=== PATIENT | female | born 1960 | race Caucasian/White ===

== ENCOUNTER 2023-10-29 11:00 | Outpatient (OUT) | payer OTHER, SELFPAY ==
[2023-10-29 11:20] LABS: Bilirubin Urine SMALL (NEGATIVE); Blood Urine NEGATIVE (NEGATIVE); Clarity Urine CLEAR (CLEAR); Color Urine DK. YELLOW (YELLOW); Glucose Urine UA NEGATIVE (NEGATIVE); Ketones Urine TRACE mg/dL (NEGATIVE); Leukocyte Esterase Urine TRACE (NEGATIVE); Nitrite Urine NEGATIVE (NEGATIVE); Protein Urine TRACE mg/dL (NEG/TRACE); Specific Gravity Urine >=1.030 (1.005-1.025); pH Urine 5.5 (5.0-9.0)
[2023-10-29 11:24] LABS: Basophils Percent Auto 0.5 % (0.2-2.0); Eosinophils Absolute Auto 0.2 10^3/uL (0.0-0.7); Eosinophils Percent Auto 1.9 % (0.9-7.0); Hematocrit 42.7 % (36.0-48.0); Hemoglobin 13.8 g/dL (12.0-16.0); Immature Granulocytes Abs Auto 0.02 10^3/uL (0.00-0.03); Immature Granulocytes Pct Auto 0.3 % (0.0-0.5); Lymphocytes Absolute Auto 1.7 10^3/uL (1.2-3.8); Mean Corpuscular HGB Conc 32.3 g/dL (29.9-35.2); Mean Corpuscular Hemoglobin 29.7 pg (26.7-34.0); Mean Platelet Volume 9.3 fL (9.5-13.5); Monocytes Absolute Auto 0.6 10^3/uL (0.3-0.8); Neutrophils Absolute Auto 5.3 10^3/uL (1.4-6.5); Neutrophils Percent Auto 67.3 % (43.0-75.0); Platelet Count 293 10^3/uL (150-450); Red Blood Count 4.64 10^6/uL (4.20-5.40); Red Cell Distribution Width 12.1 % (11.0-15.0); White Blood Count 7.9 10^3/uL (4.0-11.0)
[2023-10-29 11:50] LABS: Bacteria Urine TRACE #/HPF (NONE SEEN); Crystals Seen? None Seen #/HPF (None Seen); Mucus Urine NONE SEEN (NONE SEEN); RBC Urine 0-2 #/HPF (0-2); Squamous Epithelial Cell Urine MODERATE #/LPF (NONE/RARE)
[2023-10-29 11:51] LABS: Cast Seen? NONE SEEN #/LPF (NONE SEEN)
[2023-10-29 12:50] LABS: Free T4 0.99 ng/dL (0.76-1.46)
[2023-10-29 12:56] LABS: Alanine Aminotransferase 34 U/L (14-59); Alkaline Phosphatase 117 U/L (46-116); Anion Gap 12.1; Aspartate Amino Transferase 18 U/L (15-37); BUN Creatinine Ratio 19.6; Bilirubin Total 0.8 mg/dL (0.2-1.0); Calcium 9.3 mg/dL (8.5-10.1); Carbon Dioxide 27.1 mmol/L (21.0-32.0); Chloride 103 mmol/L (98-107); Chol HDL Ratio 4.2; Cholesterol 224 mg/dL (<=200); Estimated GFR (African America >60 (>=60); Estimated GFR (Non-African Ame 51 (>=60); Free T3 2.68 pg/mL (2.18-3.98); Globulin 3.9 g/dL; Glucose 116 mg/dL (74-106); HDL Cholesterol 53 mg/dL (40-60); Potassium 4.2 mmol/L (3.5-5.1); Sodium 138 mmol/L (136-145); Thyroid Stimulating Hormone 2.274 uIU/mL (0.358-3.740); Total Protein 7.9 g/dL (6.4-8.2); Triglycerides 153 mg/dL (<=150); VLDL CHOLESTEROL 30.6 mg/dL
[2023-10-30 16:09] LABS: Thyroglobulin Antibody <1.0 IU/mL (0.0-0.9); Thyroid Peroxidase (TPO) Ab <9 IU/mL (0-34)
== END 2023-10-29 11:01 | disposition home or self-care (01) ==
LOC: LAB 11:00
PROVIDERS: PCP Family Medicine; Visit Provider Family Medicine
DX: E01.0 Iodine-deficiency related diffuse (endemic) goiter (principal); E78.5 Hyperlipidemia, unspecified; Z79.899 Other long term (current) drug therapy; R35.1 Nocturia
CPT/HCPCS: 36415; 80053; 80061; 81001; 84439; 84443; 84481; 85025; 86376; 86800; 87086

== ENCOUNTER 2023-11-06 13:54 | Outpatient (OUT) | payer OTHER, SELFPAY ==
--- NOTE | 2023-11-06 13:59 | US_ITS ---
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 FINDINGS: The right thyroid lobe is heterogeneous and enlarged measuring 5.4 x 3.1 x 2.7 cm. 2 focal nodules. The thyroid isthmus is thickened measuring 8.7 mm. Heterogeneous. No focal nodule The left thyroid lobe is heterogeneous and enlarged measuring 6.4 x 3.6 x 2.8 cm. Single focal nodule The 2 most suspicious nodules: Nodule 1: Right mid lobe. 2.8 x 2.6 x 3.0 cm. Solid, hypoechoic, tall, smooth margins, punctate calcifications. TR 5 Nodule 2: Left thyroid lobe. 4.5 x 3.6 x 3.6 cm. Solid, hypoechoic, wide, smooth margins, punctate calcifications. TR 5 US/US thyroid IMPRESSION: Bilateral suspicious thyroid nodules with increase in size of the left thyroid nodule. Fine-needle aspiration is recommended if not already performed TI-RADS: The [employer] TI-RADS committee's white paper recommendations for thyroid lesions classified as TR5 (highly suspicious) are listed below: > 0.5 cm. Annual ultrasound follow-up for up to 5 years. > 1.0 cm. FNA. J. Am Ayala Radiol 2017;14:587-595. Electronically authenticated by: ROSEY MALODNADO Date: 11/06/2023 14:43
== END 2023-11-06 13:55 | disposition home or self-care (01) ==
LOC: US 13:54
PROVIDERS: PCP Family Medicine; Visit Provider Family Medicine
DX: E01.0 Iodine-deficiency related diffuse (endemic) goiter (principal)
CPT/HCPCS: 76536

== ENCOUNTER 2024-01-02 11:34 | Outpatient (OUT) | payer OTHER, SELFPAY ==
--- OUTSIDE RECORDS SUMMARY | 2024-01-02 11:40 | XMS_ITS | CCD ---
Author Name Unknown Address [address] [place] [address] Organization [facility] Care Team Providers Care Sustainability Engineer Name Role Phone Rosey Chao Unavailable DO Rosey Chao Primary Care Provider [phone] [facility], [facility] Attending Provider DR ROSEY CHAO Admitting Unavailable ZHANNA, DR CURRIE Attending Unavailable ZHANNA, DR CURRIE Primary Care Unavailable ZHANNA, DR CURRIE Consulting Unavailable [place], DR Currie Consulting Unavailable DO Rosey Chao Primary Care Provider DO Len Sosa Attending Provider LEN SOSA Attending Unavailable ROSEY CHAO Referring Unavailable Rosey Chao Primary Care Unavailable Len Sosa Attending Unavailable Len Sosa Admitting Unavailable Allergies Allergy Classification Reported Allergen(s) Allergy Type Date of Onset Reaction(s) Facility (2 sources) Oxytetracycline; Translations: [oxytetracycline] Drug Allergy 12-04-2023 [facility] Medications Current Medications Medication Drug Class(es) Dates Sig (Normalized) Sig (Original) amLODIPine 5 mg oral tablet (1 source) Dihydropyridine Calcium Channel Jean Marie Start: 12-06-2023 take 1 tablet by mouth every twenty-four hours amLODIPine Besylate 5 MG 1 tablet Orally Once a day for 90 days Nov, Active cholecalciferol 0.025 mg oral tablet (1 source) Vitamin D Start: 12-04-2023 take 1 tablet by mouth once daily Cholecalciferol (Vitamin D3) (Vitamin D3) 25 mcg (1,000 unit) Tablet Active 25 MCG PO Daily December 04, 2023 12:00am ciprofloxacin 2 mg/ml / hydrocortisone 10 mg/ml otic suspension (6 sources) Corticosteroid, Quinolone Antimicrobial Start: 05-25-2022 Cipro HC 0.2-1 % 3 drops into affected ear Otic Twice a day for 10 days 1 bottle May, Active clotrimazole 10 mg/ml topical solution (6 sources) Azole Antifungal Start: 05-25-2022 Clotrimazole 1 % 3 drops left ear Externally three times a day for 14 days May, Active Start: 05-25-2022 Clotrimazole 1 % 3 drops left ear Externally three times a day for 14 days May, Active fluticasone propionate 0.05 mg/actuat metered dose nasal spray (4 sources) Corticosteroid Start: 10-29-2023 take 2 spray(s) nasal route once daily Fluticasone Propionate 50 MCG/ACT 2 sprays each nostril Nasally Once a day Oct, Active PARoxetine hydrochloride 20 mg oral tablet (11 sources) Serotonin Reuptake Inhibitor Start: 12-04-2023 Paroxetine Hcl (Paxil) 20 mg Tablet Active 25 MG PO Every morning December 04, 2023 12:00am take 1 tablet by chino th once daily in the morning PARoxetine HCl ER 25 MG TAKE 1 TABLET BY MOUTH EVERY DAY IN THE MORNING Active Vitamin D3 (10 sources) Vitamin D3 Activ e Completed/Discontinued Medications Medication Drug Class(es) Dates Sig (Normalized) Sig (Original) augmented betamethasone 0.5 mg/ml topical cream (10 sources) Corticosteroid Start: 05-25-2022 Betamethasone Dipropionate Aug 0.05 % 1 application Externally Once a day x14 days for 14 days May, Not-Taking/PRN Start: 05-25-2022 Betamethasone Dipropionate Aug 0.05 % 1 application Externally Once a day x14 days for 14 days May, Active Problems Active Problems Problem Classification Problem Date Documented Date Episodic/Chronic Allergic reactions (3 sources) Dermatitis, unspecified Onset: 05-25-2022 Resolved: 05-25-2022 Episodic Anxiety disorders (12 sources) Mixed anxiety and depressive disorder; Translations: [Other specified anxiety disorders] Chronic Diabetes mellitus without complication (2 sources) Hyperglycemia, unspecified Episodic Disorders of lipid metabolism (12 sources) Hyperlipidemia; Translations: [Hyperlipidemia, unspecified] Chronic Esophageal disorders (10 sources) Acid reflux; Translations: [Gastro-esophageal reflux disease without esophagitis] Chronic Genitourinary symptoms and ill-defined conditions (1 source) Nocturia Episodic Other aftercare (2 sources) Other assisted (current) drug therapy Episodic Other circulatory disease (2 sources) Elevated blood-pressure reading, without diagnosis of hypertension Episodic Other nutritional; endocrine; and metabolic disorders (1 source) Abnormal weight loss Episodic Other screening for suspected conditions (not mental disorders or infectious disease) (4 sources) Abnormal findings on diagnostic imaging of other specified body structures; Translations: [Abnormal thyroid ultrasound] Chronic Otitis media and related conditions (1 source) Other specified disorders of Eustachian tube, unspecified ear Episodic Thyroid disorders (20 sources) Thyroid nodule; Translations: [Nontoxic single thyroid nodule] Onset: 05-25-2022 Resolved: 06-09-2022 Chronic Unclassified (1 source) Encounter for preprocedural laboratory examination; Translations: [Encounter for preprocedural laboratory examination] Onset: 12-04-2023 Past or Other Problems Problem Classification Problem Date Documented Da te Episodic/Chronic Other ear and sense organ disorders (1 source) Acute eczematoid otitis externa, left ear Onset: 05-25-2022 Resolved: 05-25-2022 Episodic Results Test Name Value Interpretation Reference Range Facility Basic Metabolic Panelon 11-19 Anion gap [Moles/Vol] 8.8 mmol/L Normal 6.0-15.0 [facility] Comment on above: Performed By: #### B MP, CBC #### [place] [address] [place] Calcium [Mass/Vol] 9.9 mg/dL Normal 8.6-10.3 [facility] Comment on above: Result Comment: PERF ORMED BY: [place] [address] PATHOLOGIST LICENSE EXAMINER BRANDY LIU M.D. Performed By: #### B MP, CBC #### [facility] [address] Chloride [Moles/Vol] 106 mmol/L Normal 98-107 [facility] Comment on above: Performed By: #### B MP, CBC #### [facility] [address] [place] [address] [place] CO2 [Moles/Vol] 30.6 mmol/L Normal 21.0-31.0 [facility] Comment on above: Performed By: #### B MP, CBC #### [address] Creatinine [Mass/Vol] 0.83 mg/dL Normal 0.60-1.20 [facility] Comment on above: Performed By: #### B MP, CBC #### [place] [address] [place] GFR/1.73 sq M.predicted MDRD (S/P/Bld) [Vol rate/Area] mL/min/{1.73_m2} Normal [facility] Comment on above: Performed By: #### B MP, CBC #### [address] Glucose [Mass/Vol] 87 mg/dL Normal 70-100 [facility] Comment on above: Result Comment: [place] Glucose Reference Range is dependent on time and content of last meal. Glucose of more than 200 mg/dL in a nonstressed, ambulatory subject supports the diagnosis of Diabetes Mellitus. ADA recommended reference range Performed By: #### B MP, CBC #### [address] Potassium [Moles/Vol] 4.4 mmol/L Normal 3.5-5.1 [facility] Comment on above: Performed By: #### B MP, CBC #### [place] [address] [place] Sodium [Moles/Vol] 141 mmol/L Normal 136-145 [facility] Comment on above: Performed By: #### B MP, CBC #### [place] [address] [place] Urea nitrogen [Mass/Vol] 19 mg/dL Normal 7-25 [facility] Comment on above: Performed By: #### B MP, CBC #### [place] [address] [place] Basophils Auto (Bld) [#/Vol] Ordered By: Len Sosa on 12-04-2023 Basophils (Bld) [#/Vol] 0.0 10*3/uL 0.0-0.2 [facility] Basophils/100 WBC Auto (Bld) Ordered By: Len Sosa on 12-04-2023 Basophils/100 WBC (Bld) 0.4 % . F [facility] Calcium [Mass/volume] in Ser um or PlasmaOrdered By: Len Sosa on 12-04-2023 Calcium [Mass/Vol] 9.9 mg/dL 8.6-10.3 [facility] Carbon dioxide, total [Moles /volume] in Serum or PlasmaOrdered By: Len Sosa on 12-04-2023 CO2 [Moles/Vol] 30.6 mmol/L 21.0-31.0 [facility] Chloride [Moles/volume] in S konrad or PlasmaOrdered By: Len Sosa on 12-04-2023 Chloride [Moles/Vol] 106 mmol/L 98-107 [facility] Complete Blood Count Auto Di ffon 12-04-2023 Basophils (Bld) [#/Vol] 0.0 10*3/uL Normal 0.0-0.2 [facility] Comment on above: Result Comment: PERF ORMED BY: [place] [address] PATHOLOGIST LICENSE EXAMINER BRANDY LIU M.D. Performed By: #### B MP, CBC #### [facility] [address] [place] [address] [place] Basophils/100 WBC (Bld) 0.4 % Normal . F [facility] Comment on above: Performed By: #### B MP, CBC #### [facility] [address] [place] [address] [place] Eosinophils (Bld) [#/Vol] 0.2 10*3/uL Normal 0.0-0.45 [facility] Comment on above: Performed By: #### B MP, CBC #### [facility] [address] [place] [address] [place] Eosinophils/100 WBC (Bld) 2.7 % Normal . [facility] Comment on above: Performed By: #### B MP, CBC #### [facility] [address] Erythrocyte distribution width (RBC) [Ratio] 12.9 % Normal 11.9-15.3 [facility] Comment on above: Performed By: #### B MP, CBC #### [facility] [address] Hematocrit (Bld) [Volume fraction] 37.3 % Normal 34.0-46.4 [facility] Comment on above: Performed By: #### B MP, CBC #### [facility] [address] Hemoglobin (Bld) [Mass/Vol] 12.6 g/dL Normal 11.8-15.4 [facility] Comment on above: Performed By: #### B MP, CBC #### [address] Lymphocytes (Bld) [#/Vol] 1.5 10*3/uL Normal 1.00-4.8 [facility] Comment on above: Performed By: #### B MP, CBC #### [facility] [address] Lymphocytes/100 WBC (Bld) 24.5 % Normal . [facility] Comment on above: Performed By: #### B MP, CBC #### [facility] [address] MCH (RBC) [Entitic mass] 29.9 pg Normal 24.7-34.3 [facility] Comment on above: Performed By: #### B MP, CBC #### [facility] [address] MCV (RBC) [Entitic vol] 88.5 fL Normal 80-[address] [facility] Comment on above: Performed By: #### B MP, CBC #### [facility] [address] Mean Corpuscular HGB Conc 33.7 g/dL Normal 32.0-35.0 [facility] Comment on above: Performed By: #### B MP, CBC #### [facility] [address] [place] [address] [place] Monocytes (Bld) [#/Vol] 0.5 10*3/uL Normal 0.0-0.8 [facility] Comment on above: Performed By: #### B MP, CBC #### [facility] [address] [place] [id number] [place] Monocytes/100 WBC (Bld) 8.5 % Normal . F [facility] Comment on above: Performed By: #### B MP, CBC #### [facility] [address] [place] [address] [place] Neutrophils (Bld) [#/Vol] 3.9 10*3/uL Normal 1.8-7.7 [facility] Comment on above: Performed By: #### B MP, CBC #### [facility] [address] [place] [address] [place] Neutrophils/100 WBC (Bld) 63.9 % Normal . [facility] Comment on above: Performed By: #### B MP, CBC #### [facility] [address] [place] [address] [place] NRBC% 0.1 /100{WBC} Normal 0-0.5 [facility] Comment on above: Performed By: #### B MP, CBC #### [facility] [address] [place] [address] [place] Platelet mean volume (Bld) [Entitic vol] 7.4 fL Normal 6.3-10.7 [facility] Comment on above: Performed By: #### B MP, CBC #### [facility] [address] [place] [address] [place] Platelets (Bld) [#/Vol] 258 10*3/uL Normal 150-450 [facility] Comment on above: Performed By: #### B MP, CBC #### [facility] [address] [place] [address] [place] RBC (Bld) [#/Vol] 4.22 10*6/uL Normal 3.60-5.00 [facility] Comment on above: Performed By: #### B MP, CBC #### [facility] [address] [place] [address] [place] WBC (Bld) [#/Vol] 6.0 10*3/uL Normal 3.8-11.6 [facility] Comment on above: Performed By: #### B MP, CBC #### [facility] [address] Creatinine [Mass/volume] in Serum or PlasmaOrdered By: Len Sosa on 12-04-2023 Creatinine [Mass/Vol] 0.83 mg/dL 0.60-1.20 [facility] ECG 12 lead ECGon 12-04-2023 ECG 12 lead ECG [facility] Main [place] [address] [place] [address] Electrocardiograph Report Signed Patient: Nicole Painter MR#: [id number] : 1960 Acct:[id number] Age/Sex: 63 / F ADM Date: 12/04/23 Loc: Room: Type: [facility] Attending Dr: Len Sosa DO Ordering Provider: Len Sosa DO Date of Service: 12/04/23 ECG/ECG 12 lead ECG: PST Copies to: Test Reason : Blood Pressure : / mmHG Vent. Rate : 065 BPM Atrial Rate : 065 BPM P-R Int : 164 ms QRS Dur : 084 ms QT Int : 416 ms P-R-T Axes : 070 -02 -07 degrees QTc Int : 432 ms Normal sinus rhythm Possible Anteroseptal infarct . Confirmed by GORDON BERGMAN MD ([id number]) on 12/04/2023 6:00:28 PM Referred By: CODY Electronically Signed By:GORDON BERGMAN MD Transcribed By: MUS Signed By Gordon Bergman MD 0 12/04/23 1800 Normal [facility] Eosinophils Auto (Bld) [#/Vo l]Ordered By: Len Sosa on 12-04-2023 Eosinophils (Bld) [#/Vol] 0.2 10*3/uL 0.0-0.45 [facility] Eosinophils/100 WBC Auto (Bl d)Ordered By: Len Sosa on 12-04-2023 Eosinophils/100 WBC (Bld) 2.7 % . [facility] Erythrocyte distribution wid th Auto (RBC) [Ratio]Ordered By: Len Sosa on 12-04-2023 Erythrocyte distribution width (RBC) [Ratio] 12.9 % 11.9-15.3 [facility] Glucose [Mass/volume] in Ser um or PlasmaOrdered By: Len Sosa on 12-04-2023 Glucose [Mass/Vol] 87 mg/dL 70-100 [facility] Comment on above: ADA recommended refe rence rangeRandom Glucose Reference Range is dependent on time and content of last meal. Glucose of more than 200 mg/dL in a nonstressed, ambulatory subject supports the diagnosis of Diabetes Mellitus. Hematocrit Auto (Bld) [Volum e fraction]Ordered By: Len Sosa on 12-04-2023 Hematocrit (Bld) [Volume fraction] 37.3 % 34.0-46.4 [facility] Hemoglobin [Mass/volume] in BloodOrdered By: Len Sosa on 12-04-2023 Hemoglobin (Bld) [Mass/Vol] 12.6 g/dL 11.8-15.4 [facility] Leukocytes [#/volume] correc yousuf for nucleated erythrocytes in Blood by Automated counOrdered By: Len Sosa on 12-04-2023 WBC corrected for nucl RBC Auto (Bld) [#/Vol] 6.0 10*3/uL 3.8-11.6 [facility] Lymphocytes Auto (Bld) [#/Vo l]Ordered By: Len Sosa on 12-04-2023 Lymphocytes (Bld) [#/Vol] 1.5 10*3/uL 1.00-4.8 [facility] Lymphocytes/100 WBC Auto (Bl d)Ordered By: Len Sosa on 12-04-2023 Lymphocytes/100 WBC (Bld) 24.5 % . [facility] MCH Auto (RBC) [Entitic mass ]Ordered By: Len Sosa on 12-04-2023 MCH (RBC) [Entitic mass] 29.9 pg 24.7-34.3 [facility] MCHC Auto (RBC) [Mass/Vol]Or dered By: Len Sosa on 12-04-2023 MCHC (RBC) [Mass/Vol] 33.7 g/dL 32.0-35.0 [facility] MCV Auto (RBC) [Entitic vol] Ordered By: Len Sosa on 12-04-2023 MCV (RBC) [Entitic vol] 88.5 fL 80-[address] [facility] Monocytes Auto (Bld) [#/Vol] Ordered By: Len Sosa on 12-04-2023 Monocytes (Bld) [#/Vol] 0.5 10*3/uL 0.0-0.8 [facility] Monocytes/100 WBC Auto (Bld) Ordered By: Len Sosa on 12-04-2023 Monocytes/100 WBC (Bld) 8.5 % . F [facility] Neutrophils Auto (Bld) [#/Vo l]Ordered By: Len Sosa on 12-04-2023 Neutrophils (Bld) [#/Vol] 3.9 10*3/uL 1.8-7.7 [facility] Neutrophils/100 WBC Auto (Bl d)Ordered By: Len Sosa on 12-04-2023 Neutrophils/100 WBC (Bld) 63.9 % . [facility] No Panel InformationOrdered By: Len Sosa on 12-04-2023 Estimated GFR (CKD-EPI) > 60.0 mL/Min [facility] Creatinine Clearance (Chem N/A [facility] Nucleated erythrocytes [Pres ence] in Blood by Automated countOrdered By: Len Sosa on 12-04-2023 Nucleated RBC Auto Ql (Bld) 0.1 /100{WBC} 0-0.5 [facility] Platelet mean volume Auto (B ld) [Entitic vol]Ordered By: Len Sosa on 12-04-2023 Platelet mean volume (Bld) [Entitic vol] 7.4 fL 6.3-10.7 [facility] Platelets Auto (Bld) [#/Vol] Ordered By: Len Sosa on 12-04-2023 Platelets (Bld) [#/Vol] 258 10*3/uL 150-450 [facility] Potassium [Moles/volume] in Serum or PlasmaOrdered By: Len Sosa on 12-04-2023 Potassium [Moles/Vol] 4.4 mmol/L 3.5-5.1 [facility] RBC Auto (Bld) [#/Vol]Ordere d By: Len Sosa on 12-04-2023 RBC (Bld) [#/Vol] 4.22 10*6/uL 3.60-5.00 [facility] Serum or plasma anion gap de terminationOrdered By: Len Sosa on 12-04-2023 Anion gap [Moles/Vol] 8.8 mmol/L 6.0-15.0 [facility] Sodium [Moles/volume] in Ser um or PlasmaOrdered By: Len Sosa on 12-04-2023 Sodium [Moles/Vol] 141 mmol/L 136-145 [facility] Urea nitrogen [Mass/volume] in Serum or PlasmaOrdered By: Len Sosa on 12-04-2023 Urea nitrogen [Mass/Vol] 19 mg/dL 7-25 [facility] WBC Auto (Bld) [#/Vol]Ordere d By: Len Sosa on 12-04-2023 WBC (Bld) [#/Vol] 6.0 10*3/uL 3.8-11.6 [facility] US THYROIDon 06-08-2022 US THYROID EXAMINATION: US THYROID HISTORY: Diffuse endemic goiter COMPARISON: No relevant comparison available. TECHNIQUE: Sonographic images of the thyroid gland were obtained. FINDINGS: The right thyroid lobe measures 6.4 x 3.1 x 2.8 cm. 2 focal nodules over 1 cm. Nodule 1: Superior lobe. 2.9 x 2.5 x 2.8 cm. Solid, hypoechoic, wide, smooth margins, no calcifications. TR 4 Nodule 2: Inferior lobe. 1.8 x 2.2 x 0.9 cm. Mixed solid and cystic, hypoechoic, wide, smooth margins, irregular margins. TR 3 The thyroid isthmus measures 5.6 mm, heterogeneous. No focal nodule The left thyroid lobe measures 4.8 x 3.3 x 3.0 cm. Single focal nodule over 1 cm Nodule 1: Mid lobe. 3.9 x 2.9 x 3.1 cm. Solid, isoechoic, wide, smooth margins, no calcifications. TR 3 IMPRESSION: Bilateral thyroid nodules. Consider fine-needle aspiration of right thyroid lobe nodule 1 measuring 2.9 cm and left thyroid lobe nodule 1 measuring 3.9 cm TI-RADS: The [employer] TI-RADS committee's white paper recommendations for thyroid lesions classified as TR3 (mildly suspicious) are listed below: > 1.5 cm. Follow-up ultrasound in 1, 3, and 5 years. > 2.5 cm. FNA. J. Am Ayala Radiol 2017;14:587-595. TI-RADS: [employer] TI-RADS committee's white paper recommendations for thyroid lesions classified as TR4 (moderately suspicious) are listed below: > 1.0 cm. Follow-up ultrasound in 1, 2, 3, and 5 years. > 1.5 cm. FNA. J. Am Ayala Radiol 2017;14:587-595. Electronically authenticated by: ROSEY MALDONADO Date: 2022-06-08 16:[address] [facility] Blood hemoglobin measurement (mass/volume)Ordered By: [facility] on 06-03-2022 Hemoglobin (Bld) [Mass/Vol] 13.1 g/dL 11.8-15.4 [facility] Body fluid albumin measureme nt (mass/volume)Ordered By: [facility] on 06-03-2022 Albumin (Body fld) [Mass/Vol] 4.1 g/dL 3.2-5.5 [facility] Cholesterol [Mass/volume] in Serum or PlasmaOrdered By: [facility] on 06-03-2022 Cholesterol [Mass/Vol] 221 mg/dL 140-200 [facility] Comment on above: Chol less than 200 m g/dl low risk Chol 201-239 mg/dl borderline risk Chol 240 mg/dl and greater high risk Cholesterol in LDL Calc [Mas s/Vol]Ordered By: [facility] on 06-03-2022 Cholesterol in LDL [Mass/Vol] 144 mg/dL 0-100 [facility] Comment on above: LDL ATP III CLASSIFI CATION LDL less than 100 mg/dL Optimal LDL 100-129 mg/dL Near or above optimal LDL 130-159 mg/dL Borderline high LDL 160-189 mg/dL High LDL greater than 189 mg/dL Very high Cholesterol in VLDL Calc [Ma ss/Vol]Ordered By: [facility] on 06-03-2022 Cholesterol in VLDL [Mass/Vol] 33 mg/dL [facility] Creatinine and Glomerular fi ltration rate.predicted panel (S/P/Bld)Ordered By: [facility] on 06-03-2022 Creatinine [Mass/Vol] 0.97 mg/dL 0.44-1.03 [facility] Erythrocyte distribution wid th Auto (RBC) [Ratio]Ordered By: [facility] on 06-03-2022 Erythrocyte distribution width (RBC) [Ratio] 12.6 % 11.9-15.3 [facility] Estimated glomerular filtrat ion rate (GFR) non- AmericanOrdered By: [facility] on 06-03-2022 GFR/1.73 sq M.predicted among non-blacks MDRD (S/P/Bld) [Vol rate/Area] 58 mL/Min [facility] Hematocrit Auto (Bld) [Volum e fraction]Ordered By: [facility] on 06-03-2022 Hematocrit (Bld) [Volume fraction] 39.1 % 34.0-46.4 [facility] MCH Auto (RBC) [Entitic mass ]Ordered By: [facility] on 06-03-2022 MCH (RBC) [Entitic mass] 30.0 pg 24.7-34.3 [facility] MCHC Auto (RBC) [Mass/Vol]Or dered By: [facility] on 06-03-2022 MCHC (RBC) [Mass/Vol] 33.5 g/dL 32.0-35.0 [facility] MCV Auto (RBC) [Entitic vol] Ordered By: [facility] on 06-03-2022 MCV (RBC) [Entitic vol] 89.6 fL 80-[address] [facility] No Panel InformationOrdered By: [facility] on 06-03-2022 Estimated GFR () > 60 mL/Min [facility] Comment on above: GFR estimated refere nce range: According to KDOQI guidelines, <60 ml/min/1.73m2 is sufficient to diagnose a patient with chronic kidney disease. Pharmacy Creatinine Clearance (Chem N/A [facility] Triglycerides Reflex 169 mg/dL 35-149 [facility] Comment on above: TRIG ATP III CLASSIF ICATION TRIG less than 150 mg/dL Normal TRIG 150-199 mg/dL Borderline high TRIG 200-500 mg/dL High TRIG greater than 500 mg/dL Very high Standard traceable to the Center for Disease Conrtrol and Prevention (CDC) test method. Platelet mean volume Auto (B ld) [Entitic vol]Ordered By: [facility] on 06-03-2022 Platelet mean volume (Bld) [Entitic vol] 8.1 fL 6.3-10.7 [facility] Platelets Auto (Bld) [#/Vol] Ordered By: [facility] on 06-03-2022 Platelets (Bld) [#/Vol] 284 10*3/uL 150-450 [facility] Protein [Mass/volume] in Ser um or PlasmaOrdered By: [facility] on 06-03-2022 Protein [Mass/Vol] 6.7 g/dL 6.1-7.9 [facility] RBC Auto (Bld) [#/Vol]Ordere d By: [facility] on 06-03-2022 RBC (Bld) [#/Vol] 4.37 10*6/uL 3.60-5.00 [facility] Serum or plasma alanine alba otransferase measurement without P-5'-P (enzymatic activiOrdered By: [facility] on 06-03-2022 ALT No additional P-5'-P [Catalytic activity/Vol] 33 U/L 10-60 [facility] Serum or plasma alkaline sabrina sphatase measurement (enzymatic activity/volume)Ordered By: [facility] on 06-03-2022 ALP [Catalytic activity/Vol] 97 U/L 32-92 [facility] Serum or plasma aspartate am inotransferase measurement (enzymatic activity/volume)Ordered By: [facility] on 06-03-2022 AST [Catalytic activity/Vol] 26 U/L 10-42 [facility] Serum or plasma calcium gladys urement (mass/volume)Ordered By: [facility] on 06-03-2022 Calcium [Mass/Vol] 9.9 mg/dL 8.2-10.2 [facility] Serum or plasma chloride nahum surement (moles/volume)Ordered By: [facility] on 06-03-2022 Chloride [Moles/Vol] 103 mmol/L 95-114 [facility] Serum or plasma glucose gladys urement (mass/volume)Ordered By: [facility] on 06-03-2022 Glucose [Mass/Vol] 99 mg/dL 70-100 [facility] Comment on above: ADA recommended refe rence range Random Glucose Reference Range is dependent on time and content of last meal. Glucose of more than 200 mg/dL in a nonstressed, ambulatory subject supports the diagnosis of Diabetes Mellitus. Serum or plasma high density lipoprotein (HDL) cholesterol measurementOrdered By: [facility] on 06-03-2022 Cholesterol in HDL [Mass/Vol] 43 mg/dL 35-85 [facility] Comment on above: HDL CHOL ATP-III CLA SSIFICATION Cardiovascular Risk HDL > or equal to 60 mg/dL LOW HDL < 40 mg/dL HIGH Serum or plasma potassium me asurement (moles/volume)Ordered By: [facility] on 06-03-2022 Potassium [Moles/Vol] 4.3 mmol/L 3.5-5.1 [facility] Serum or plasma sodium measu rement (moles/volume)Ordered By: [facility] on 06-03-2022 Sodium [Moles/Vol] 138 mmol/L 136-146 [facility] Serum or plasma total biliru bin measurement (mass/volume)Ordered By: [facility] on 06-03-2022 Bilirubin [Mass/Vol] 0.8 mg/dL 0.3-1.2 [facility] Serum or plasma total carbon dioxide measurement (moles/volume)Ordered By: [facility] on 06-03-2022 CO2 [Moles/Vol] 28.4 mmol/L 22.0-30.0 [facility] Serum or plasma total choles terol/high density lipoprotein (HDL) cholesterol mass ratOrdered By: [facility] on 06-03-2022 Cholesterol.total/Cholest andrew in HDL [Mass ratio] 5.1 {ratio} [facility] Serum or plasma urea nitroge n measurement (mass/volume)Ordered By: [facility] on 06-03-2022 Urea nitrogen [Mass/Vol] 20 mg/dL 9- [facility] TSH DL <= 0.005 mIU/L QnOrde red By: [facility] on 06-03-2022 TSH Qn 2.51 m[IU]/L 0.45-5.33 [facility] WBC Auto (Bld) [#/Vol]Ordere d By: [facility] on 06-03-2022 WBC (Bld) [#/Vol] 8.2 10*3/uL 3.8-11.6 [facility] Vital Signs Date Time Vital Sign Value Performing Clinician Facility 12-25-2023 11:10-0500 Body height 177.8 cm Rosey Chao Other [facility] Other 12-25-2023 11:10-0500 Body mass index (BMI) [Ratio] 26.61 kg/m2 Rosey Chao Other [facility] Other 12-25-2023 11:10-0500 Body temperature 97.6 [degF] Rosey Chao Other [facility] Other 12-25-2023 11:10-0500 Body weight 84.14 kg Rosey Chao Other [facility] Other 12-25-2023 11:10-0500 Diastolic blood pressure Rosey Chao Other [facility] Other 12-25-2023 11:10-0500 Respiratory rate 18 /min Rosey Chao Other [facility] Other 12-25-2023 11:10-0500 SaO2% (BldA) [Mass fraction] 98 % Rosye Chao Other [facility] Other 12-25-2023 11:10-0500 Systolic blood pressure 128 mm[Hg] Rosey Chao Other [facility] Other 10-29-2023 10:10-0500 Body height 177.8 cm Rosey Chao Other [facility] Other 10-29-2023 10:10-0500 Body mass index (BMI) [Ratio] 27.12 kg/m2 Rosey Chao Other [facility] Other 10-29-2023 10:10-0500 Body temperature 97.8 [degF] Rosey Chao Other [facility] Other 10-29-2023 10:10-0500 Body weight 85.73 kg Rosye Chao Other [facility] Other 10-29-2023 10:10-0500 Diastolic blood pressure 88 mm[Hg] Rosey Chao Other [facility] Other 10-29-2023 10:10-0500 Respiratory rate 18 /min Rosey Chao Other [facility] Other 10-29-2023 10:10-0500 SaO2% (BldA) [Mass fraction] 97 % Rosey Jacquelynsherman Other [facility] Other 10-29-2023 10:10-0500 Systolic blood pressure 138 mm[Hg] Rosey Chao Other [facility] Other 05-25-2022 11:30-0400 Body height 177.8 cm Rosey Chao Other [facility] Other 05-25-2022 11:30-0400 Body mass index (BMI) [Ratio] 26.97 kg/m2 Rosey Chao Other [facility] Other 05-25-2022 11:30-0400 Body temperature 98.6 [degF] Rosey Chao Other [facility] Other 05-25-2022 11:30-0400 Body weight 85.28 kg Rosey Chao Other [facility] Other 05-25-2022 11:30-0400 Diastolic blood pressure 90 mm[Hg] Rosey Chao Other [facility] Other 05-25-2022 11:30-0400 Respiratory rate 18 /min Rosey Chao Other [facility] Other 05-25-2022 11:30-0400 SaO2% (BldA) [Mass fraction] 95 % Rosey Chao Other [facility] Other 05-25-2022 11:30-0400 Systolic blood pressure 140 mm[Hg] Rosey Chao Other [facility] Other Encounters Encounter Date Encounter Type Care Provider Facility Start: 12-25-2023 End: 12-25-2023 ambulatory Rosey Chao Other [facility] Other Start: 12-25-2023 Office outpatient vi sit 25 minutes Rosey Chao [facility] Start: 12-04-2023 End: 12-04-2023 ambulatory Rosey Chao Facility:[facility] Start: 12-04-2023 End: 12-04-2023 ambulatory DO Rosey Chao Work Phone: [facility] Work Phone: Start: 12-04-2023 End: 12-04-2023 Patient encounter procedure DO Rosey Chao Work Phone: [facility] [facility] Work Phone: Start: 11-09-2023 End: 11-09-2023 ambulatory Rosey Chao Other [facility] Other Start: 11-09-2023 Telephone encounter Rosey Chao [facility] Start: 10-30-2023 End: 10-30-2023 ambulatory Rosey Chao Other [facility] Other Start: 10-30-2023 Telephone encounter Rosey Chao [facility] Start: 10-29-2023 End: 10-29-2023 ambulatory Rosey Chao Other [facility] Other Start: 10-29-2023 Office outpatient vi sit 25 minutes Rosey Chao [facility] Start: 08-14-2023 End: 08-14-2023 ambulatory Rosey Chao Other [facility] Other Start: 08-14-2023 Telephone encounter Rosey Chao [facility] Start: 04-02-2023 End: 04-02-2023 ambulatory Rosey Chao Other [facility] Other Start: 04-02-2023 Telephone encounter Rosey Chao [facility] Start: 06-09-2022 End: 06-09-2022 ambulatory Rosey Chao Other [facility] Other Start: 06-09-2022 Telephone encounter Rosey Chao [facility] Start: 06-08-2022 End: 06-09-[address] ROSEY CHAO Facility: Start: 06-03-2022 End: 06-03-2022 Departed Referred DO Rosey Chao Work Phone: [facility] Start: 05-25-2022 End: 05-25-2022 ambulatory Rosey Chao Other [facility] Other Start: 05-25-2022 Office outpatient vi sit 15 minutes Rosey Chao [facility] Start: 05-25-2022 Telephone encounter Rosey Chao [facility] Payers Date Payer Category Payer Self-pay [id number] 2023 Unknown [id number] 1961 Private Health Insurance EBM [id number] 1960 Unknown [id number] 1960 Unknown [id number] Unknown [id number] Social History Date Type Detail Facility Unknown if ever smoked [facility] Other Sex Assigned At Sex Assigned At Bir th [facility] Other Start: 1960 Sex Assigned At Female F [facility] Start: 12-04-2023 Tobacco smoking status NHIS Never smoked tobacco (finding) [facility] Evaluation note 12-25-2023 Note Date & Type Note Facility 12-25-2023 Evaluation note Encounter Date Diagnosis Assessment Notes Dec, Nontoxic multinodular goiter (ICD-10 - E04.2) She voices that she saw Dr. Sosa in Nov (2023) who recommended a total thyroidectomy. This was scheduled for December 19, 2023 but she did not follow through with this because her had a total breakdown and was in the hospital. No one has done a biopsy. We discussed a total thyroidectomy today, side effects/risks/b enefits of having this procedure. She questions other procedures that can be done like laser and had an appointment but due to the weather it was pushed back to 02/05/24. She is planning to see this specialist to discuss a thyroidectomy further. If this is not cancerous she is hesitant to have this removed. I highly recommend she keep the appointment with the [facility] in January (2023). We discussed her thyroid function and that in October (2022) it was functioning fine. Her TSH was 2.274. Free T3 is 2.68. Free T4 is 0.99. We also discussed Synthroid which would be used if she had her thyroid removed, and the side effects/risks/b enefits of the medication. She was hesitant to be started on a medication because she was concerned about the medication causing anxiety, I explained to her that this is not usually seen unless she is over replaced. If she is having lab drawn regularly then this should not be an issue. Dec, Hyperlipidemia (ICD-10 - E78.5) Discussed cholesterol results with patient today. Total is 224. HDL is 53. LDL is 141. Triglycerides are 153. VLDL is 30.6. She has been trying to make dietary changes, I did recommend that she continue with these and stay active. Lab to check her cholesterol can be repeated in the summer (April 2024). Dec, Elevated blood pressure (ICD-10 - R03.0) She has been checking her blood pressure on her own and her readings have been in the 145-155 over 's. Her reading in the office today was 128/80. She admits to being under a great deal of stress at home. I did recheck her blood pressure myself and got a reading of 129/81. I would like her to continue with above medication daily and continue to monitor her blood pressure. Dec, Hyperglycemia (ICD-10 - R73.9) Her glucose level was 116 which is elevated. I do want her to have a HgA1C level drawn which will measure her blood sugar over the previous three months. Orders were provided and she can call for the results. Dec, Anxiety and depression (ICD-10 - F41.8) She voices that her had a total breakdown so she has been dealing with him which is making her anxious. She does continue with the above medication daily. Dec, Weight loss (ICD-10 - R63.4) She voices that she has been working on weight loss and feels her weight loss has been slow. She has been stuck between 182-183 pounds. I did explain to her that we want to see slow and steady weight loss. One to two pounds of weight loss per month is normal. I encouraged her to continue to prioritize her intake of protein and dark green vegetables. Stay active. Dec, Other Her urinalysis looked as if she needed to drink more water. She voices that she is trying to drink more water daily. [facility] Other Evaluation note 10-30-2023 Note Date & Type Note Facility 10-30-2023 Evaluation note Encounter Date Diagnosis Assessment Notes Oct, Other assisted (current) drug therapy (ICD-10 - Z79.899) Oct, Hyperglycemia (ICD-10 - R73.9) Oct, Thyromegaly (ICD-10 - E01.0) Oct, Abnormal thyroid ultrasound (ICD-10 - R93.89) [facility] Other Evaluation note 10-29-2023 Note Date & Type Note Facility 10-29-2023 Evaluation note Encounter Date Diagnosis Assessment Notes Oct, Elevated blood pressure (ICD-10 - R03.0) Home blood pressure cuffs can read high. Her readings here have always been excellent until last year when it was borderline. Her home reading on 10/26/23 was 170/100. Today her reading in the office was 142/94 which is elevated. I did explain to her that elevated blood pressure can happen for no reason at all. I did check her blood pressure myself and got a reading of 138/88 which is high normal. She does not want to take medication and right now she does not have to. Her thyroid function could be playing a role in this. She is to continue to monitor her blood pressure on her own. Oct, Thyromegaly (ICD-10 - E01.0) She had an ultrasound of the thyroid done in May 2022 which I did independently review today. On exam today her left thyroid appears to be larger, and she voices that this side has been larger. In the past she was going to have a biopsy done but says she did not do this, it was going to be done by a radiologist. I would like to order a repeat thyroid ultrasound to be done and set her up with an ENT that would do a biopsy if needed. She agrees and a referral is made for her to see Dr. Sosa. Will order lab work for her to have done as well. Oct, Hand eczema (ICD-10 - L30.9) She has used the Betamethasone and alternated with lotion without relief. She has tried Bag [place]. She voices that this hurts. I did recommend that she try OTC [place] and apply this on prior to bed and then put a cover on her hand just prior to going to bed and allow this to soak in at night. She can keep me posted to see if this works or not. Oct, Eustachian tube dysfunction (ICD-10 - H69.80) Recommend she buy Flonase nasal spray (generic) and use 2 sprays each nostril every day in the morning to equalize the pressure. She voices that she can feel the ear popping in and out. This will help decrease her eustachian tube and calm down inflammation. Oct, Anxiety and depression (ICD-10 - F41.8) She has been on the Paxil for many years but has not taken it for the last two days because she thought it could have possibly raised her blood pressure. I did explain to her that I do not feel this medicine would have caused this. It would be more dangerous for her to suddenly stop the medication. She voices that this is a difficult time of year for her so I did recommend that she restart the medication and she agrees. Oct, Hyperlipidemia (ICD-10 - E78.5) Provided her with an order to have fasting lab drawn. Oct, Other assisted (current) drug therapy (ICD-10 - Z79.899) Oct, Nocturia (ICD-10 - R35.1) Oct, Other She voices that her left ear feels plugged and itches. On exam the ear is not full of wax and is not blocked. She may have eczema in the ear causing the itch. She voices that behind her left knee she has what feels like is a bruise, she had gone on a train ride. She feels like she sat on the seat wrong. If she has any leg swelling or worsening of symptoms she should go to the ER, otherwise she is to continue to monitor this area. If this continues to bother her past 1--24 she should let me know. [facility] Other Evaluation note 04-02-2023 Note Date & Type Note Facility 04-02-2023 Evaluation note Encounter Date Diagnosis Assessment Notes March, Hand eczema (ICD-10 - L30.9) [facility] Other Evaluation note 06-09-2022 Note Date & Type Note Facility 06-09-2022 Evaluation note Encounter Date Diagnosis Assessment Notes May, Thyroid nodule (ICD-10 - E04.1) [facility] Other Evaluation note 05-25-2022 Note Date & Type Note Facility 05-25-2022 Evaluation note Encounter Date Diagnosis Assessment Notes May, Hand eczema (ICD-10 - L30.9) Her hands will itch and crack. Bag balm does not help. I will provide her with a powerful cream but she cannot use this anywhere else but her hands. She should shower at night, pat her hands dry and then apply to the hands and sleep witht his on. Use for 14 days and then call me with progress. If this has worked well she can begin using this every other day and then wean down from there until she is using this as little as possible. May, Thyromegaly (ICD-10 - E01.0) I did recommend that she have a TSH drawn through [facility] to see how her thyroid is functioning, she does not want a lab order because of her deductible. I recommend she get the TSH drawn at the next [facility] which is 06-03-22. I did recommend a thyroid ultrasound to rule out abnormalities. She is agreeable to this. An order is provided. If needed she will likely see Dr. Sosa for evaluation. May, Acute eczematoid otitis externa of left ear (ICD-10 - H60.542) She is told that the inside of her left ear appears to have ear eczema. She voices that it gets very itchy so she uses a elier pin to itch it. I explained to her that the skin in this area does not like this and it now looks like cauliflower ear. She voices that a white color discharge will come out of her in the mornings. I advised her to avoid using a elier pin in the ear and to stop itching it. I will treat with above drops, if this does not work then we may use a drop to treat fungus. Guidance is given on how to use the drops. She is to keep me posted with how she is doing. After patient left the office the pharmacist at [facility] (Rico MOORE) called and stated that the Cipro HC was over $200 dollars and after several other medications were reviewed all of them were very expensive. Ultimately decided to treat for fungus first. Clotrimazole solution was called in. Patient was informed (see telephone encounter from today 05-25-22) May, Other She refuses a colonoscopy and mammogram today 05-25-22. She voices that her blood pressure is likely elevated because she is in the office today and because she has gained weight. Will continue to monitor as her repeat blood pressure was better. [facility] Other History general Narrative - Reported 11-01-2012 Note Date & Type Note Facility 11-01-2012 History general N arrative - Reported Type Medical History last pap over 10 years Medical History last mammogram over 10 years Medical History refused mammogram, P AP/Pelvic, Colonoscopy 11-01-12 Medical History Refuses mammogram, C olonoscopy, Seracult card x1 07-06-14 Medical History Refuses Colonoscopy 02-28-16 Medical History Refuses Colonoscopy, FOBT [address] Coreas Surgical History Fx. Nose at age 16/horse accide nt Surgical History Lipoma removed from back Hospitalization History Fx. Nose [facility] Other Evaluation note Note Date & Type Note Facility Evaluation note No Information [facility] Other Evaluation note Note Date & Type Note Facility Evaluation note No assessment information availa [facility] Work Phone: Chief Complaint and Reason for Visit Chief Complaint complete, tsh Chief Complaint Multinodular Goiter Advance Directives Advance Directive Response Recorded Date/ Time Advance Directives No June 18 1:18pm Advance Directive Response Recorded Date/ Time Advance Directives No June 18 12:18pm Summary Purpose Family History Relationship Condition Age at Onset Recorded Date/T theo father Asthma Unknown Not Specified Hypertension Unknown Diabetes mellitus Unknown Depression Unknown Reason for Referral Reason appt pt needs cons ult to evaluate thyroid US and thyromegaly Diagnosis 1 Thyromegaly (E01.0) Referral Organization [facility] Referring Provider First Name Rosey Referring Provider Last Name Jacquelynsherman Referring Provider Specialty Family Prac timmy Referred Organization [facility] Referred Provider Len Sosa Referred Address ,[place], [place],[address] Referred Provider Specialty Otolaryngolo gy Referral Priority Routine General Notes Monica Regalado 10/29/2023 02:24:55 PM > referral faxed thru [facility] with visit note, thyroid labs from today and US from 2021. pt understands she will be contacted to schedule this appt. Additional Source Comments REASON FOR VISIT (unrecogniz ed section and content) Clinicallt ear pain/swollen lymph nodesThyroid US resultsFYI onlyrefillappt neededhigh BP readingswaiting on thyroid USFYIBP check Care Teams (unrecognized sec tion and content) Team Status: Inactive Member Role Status Dates Rosey Chao DO Primary Care Provider [facility] Attending Provider Active Team Status: Active Member Role Status Dates Rosey Chao DO Primary Care Provider Active Team Status: Inactive Member Role Status Dates Rosey Chao DO Primary Care Provider Active Len Sosa DO Attending Provider Active Goals (unrecognized section and content) Goals may be documented in a n alternate section INFORMATION SOURCE (unrecogn ized section and content) DATE CREATED AUTHOR 06/14/2022 [facility] DATE CREATED AUTHOR AUTHOR'S ORGANIZ ATION 12/05/2023 [facility] EPIC DATE CREATED AUTHOR AUTHOR'S ORGANIZ ATION 12/12/2023 [facility] FOR RECORDS PERTAINING TO PATIENTS WHO ARE OR HAVE BEEN ENROLLED IN A CHEMICAL DEPENDENCY/SUBSTANCEABUSE PROGRAM, SOME INFORMATION MAY BE OMITTED. This clinical summary was aggregated from multiple sources. Caution should be exercised in using it in the provision of clinical care. This summary normalizes information from multiple sources, and as a consequence, information in this document may materially change the coding, format and clinical context of patient data. In addition, data may be omitted in some cases. CLINICAL DECISIONS SHOULD BE BASED ON THE PRIMARY CLINICAL RECORDS. [employer] provides no warranty or guarantee of the accuracy or completeness of information in this document.
[2024-01-02 12:41] LABS: Estimated Average Glucose 105 mg/dL; Glycohemoglobin A1C 5.3 % (4.5-6.2)
[2024-01-02 12:43] LABS: Alanine Aminotransferase 39 U/L (14-59); Albumin Level 3.8 g/dL (3.4-5.0); Alkaline Phosphatase 116 U/L (46-116); Anion Gap 10.8; Aspartate Amino Transferase 28 U/L (15-37); BUN Creatinine Ratio 20.8; Bilirubin Total 0.7 mg/dL (0.2-1.0); Calcium 9.6 mg/dL (8.5-10.1); Carbon Dioxide 29.1 mmol/L (21.0-32.0); Chloride 107 mmol/L (98-107); Estimated GFR (African America >60 (>=60); Estimated GFR (Non-African Ame 58 (>=60); Globulin 3.8 g/dL; Glucose 111 mg/dL (74-106); Potassium 3.9 mmol/L (3.5-5.1); Sodium 143 mmol/L (136-145); Total Protein 7.6 g/dL (6.4-8.2)
== END 2024-01-02 11:35 | disposition home or self-care (01) ==
LOC: LAB 11:36
PROVIDERS: PCP Family Medicine; Visit Provider Family Medicine
DX: R73.9 Hyperglycemia, unspecified (principal); Z79.899 Other long term (current) drug therapy
CPT/HCPCS: 36415; 80053; 83036